=== PATIENT | male | born 1955 | race Two or more races ===

== ENCOUNTER 2025-02-04 02:18 | Emergency (ER) | payer MEDICAID, OTHER ==
[~2025-02-04] VITALS: Ht 175.3 cm; Wt 103.5 kg
--- NOTE | 2025-02-04 03:28 | DVH ---
CHEST RADIOGRAPH Indication: SOB Technique: Frontal and lateral view of the chest was obtained Comparison: None FINDINGS: Lines and Tubes: None Lungs: Clear Pleura: No effusion. No pneumothorax. Cardiomediastinal contours: Unremarkable Bones: Unremarkable. 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 IMPRESSION: 1. No evidence of acute disease.
--- NOTE | 2025-02-04 03:38 | ED.PDOC ---
SOB-HPI HPI Comments 70-year-old male came to ER for shortness of breath. Patient is Taiwanese-s peaking. Does have history of hypertension, sleep apnea, status post pacemaker insertion 2 arrhythmia. Patient states for the past 4 hours prior to arrival, he has been experiencing shortness of breath, associated with nausea and vomiting. Patient also experiencing chest pressure whenever he lays down. Patient is saturating 94% on room air upon arrival Chief Complaint: Shortness of Breath Time Seen by MD: 03:36 Reviewed notes: Nurses Notes Information Source: Patient Mode of Arrival: Ambulatory Severity: Moderate Timing: Hours Duration: Since onset Context: At Rest History of: None Prehospital treatment: None Review of Systems REVIEW OF SYSTEMS: No fever, no chills, or fatigue HEENT: No sore throat, no earache, no congestion, no neck pain. Cardiac: No chest pain. No palpitations. Lungs: (+) shortness of breath, no cough. GI: (+) nausea, (+) vomiting, no diarrhea, no constipation, no abdominal pain : No dysuria, frequency, or urgency. No hematuria. Musculoskeletal: No joint pain , no joint swelling, no extremity edema. Skin: No rash, no itching. Neuro: No headache, no dizziness, no weakness Vital Signs Vital Signs Date Time Temp Pulse Resp B/P (MAP) Pulse Ox O2 Delivery O2 Flow Rate FiO2 02/04/25 05:55 98.0 60 16 144/74 (97) 96 98.0 Physical Exam General: Awake, alert and oriented. No acute distress. Skin: Skin in warm, dry and intact. Appropriate color for ethnicity. Nailbeds pink with no cyanosis. HEENT: The head is normocephalic and atraumatic. Conjunctivae are clear without exudates or hemorrhage. Sclera is non-icteric. EOM are intact. No signs of nystagmus. Eyelids are normal in appearance without swelling or lesions. Oral mucosa is pink and moist Neck: The neck is supple with normal range of motion. No JVD. Cardiac: Heart rate and rhythm are normal. No murmurs, gallops, or rubs are auscultated. Respiratory: No signs of respiratory distress. Lung sounds are clear in all lobes bilaterally without rales, rhonchi, or wheezes. Abdominal: Abdomen is soft, non-tender without distention. Bowel sounds are present and normoactive in all four quadrants. Extremities: Upper and lower extremities are atraumatic in appearance without deformity or edema. Neurological: The patient is awake, alert and oriented to person, place, and time with normal speech. Speech is clear. There is no facial asymmetry. Psychiatric: Appropriate mood and affect. Good judgement and insight. No visual or auditory hallucinations. Past Medical History PAST MEDICAL HISTORY: HTN Past Medical History (Other): Sleep apnea Surgical History: Cholecystectomy, Pacemaker Family History Family History: Reviewed,noncontributory to illness Social History Smoker: Non-Smoker Alcohol: Denies ETOH Use Drugs: Denies Drug Use Lives In: Home EKG EKG : Comments No STEMI Was a procedure done? Was a procedure done?: No Differential Dx Differential Diagnosis: Asthma, Bronchitis, CHF, COPD, Hypertension, Hyperventilation, Myocardial infarction, Pneumonia, Pulmonary Embolism, Respiratory Distress, URI, Other (Sleep apnea) X-Ray, Labs, Meds, VS Vital Signs Date Time Temp Pulse Resp B/P (MAP) Pulse Ox O2 Delivery O2 Flow Rate FiO2 02/04/25 05:55 98.0 60 16 144/74 (97) 96 98.0 02/04/25 02:29 97.8 61 16 153/81 (105) 94 97.8 Lab Test 02/04/25 04:25 02/04/25 03:26 Range/Units Troponin I High Sensitivity 17 18 </=54 ng/L White Blood Count 6.8 4.4-10.8 10^3/uL Red Blood Count 4.93 4.5-5.90 10^6/uL Hemoglobin 16.7 13.5-17.5 g/dL Hematocrit 48.6 41.0-53.0 % Mean Corpuscular Volume 98.6 80.0-100.0 fL Mean Corpuscular Hemoglobin 34.0 H 28.0-32.0 pg Mean Corpuscular Hemoglobin Concent 34.4 32.0-36.0 g/dL Red Cell Distribution Width 14.6 H 11.8-14.3 % Platelet Count 135 L 140-450 10^3/uL Mean Platelet Volume 8.4 6.9-10.8 fL Neutrophils (%) (Auto) 37.0-80.0 % Lymphocytes (%) (Auto) 10.0-50.0 % Monocytes (%) (Auto) 0.0-12.0 % Basophils (%) (Auto) 0.0-2.0 % Neutrophils # (Auto) 1.6-8.6 10 ^3/uL Lymphocytes # (Auto) 0.4-5.4 10 ^3/uL Monocytes # (Auto) 0-1.3 10 ^3/uL Differential Total Cells Counted 100.0 100 Neutrophils % (Manual) 68 37.0-80.0 Band Neutrophils % (Manual) 3 Lymphocytes % (Manual) 28 10.0-50.0 Monocytes % (Manual) 1 0-12 Eosinophils % (Manual) 0 0-7 Basophils % (Manual) 0 0.0-2.0 Metamyelocytes % (manual) 0 Myelocytes % (Manual) 0 Promyelocytes % (Manual) 0 Blast Cells % (Manual) 0 Reactive Lymphocytes 0 Platelet Estimate Decreased Red Blood Cell Morphology Normal D-Dimer, Quantitative 0.50 H 0.0-0.49 mg/L FEU Sodium Level 140 136-145 mmol/L Potassium Level 3.9 3.5-5.1 mmol/L Chloride Level 104 98-107 mmol/L Carbon Dioxide Level 28 20-31 mmol/L Anion Gap 8 5-15 Blood Urea Nitrogen 13 9-23 mg/dL Creatinine 1.24 0.700-1.30 mg/dL Glomerular Filtration Rate Calc 62 >90 mL/min BUN/Creatinine Ratio 10.5 10.0-20.0 Serum Glucose 99 74-106 mg/dL Lactic Acid Level 1.2 0.4-2.0 mmol/L Calcium Level 9.6 8.7-10.4 mg/dL Total Bilirubin 1.1 H 0.2-1.0 mg/dL Aspartate Amino Transferase (AST) 19 13-40 U/L Alanine Aminotransferase (ALT) 25 7-40 U/L Alkaline Phosphatase 63 46-116 U/L B-Type Natriuretic Peptide 235.69 0-100 pg/mL Total Protein 7.1 5.7-8.2 g/dL Albumin 4.3 3.2-4.8 g/dL Images Reviewed?: Images reviewed and evaluated by me (Independent interpretation of chest x-ray: No acute disease) Time of 1ST Reevaluation: 03:34 Reevaluation 1ST: Unchanged Patient Education/Counseling: Need For Follow Up Family Education/Counseling: Need For Follow Up Departure 1 Departure Time of Disposition: 05:58 Impression: Primary Impression: Shortness of breath Disposition: 01 HOME / SELF CARE / HOMELESS Condition: Stable Additional Instructions: INSTRUCCIONES DE DAGO DE Urgencias Instrucciones: Grace atentamente todas las instrucciones proporcionadas en herlinda paquete. Aunque le hayan dado el dago del Departamento de Emergencias, esto no significa que tenga un "certificado de buena emma". [] Hoy no se marcial realizado ningn diagnstico definitivo para geri sntomas. Es posible que ests en proceso de desarrollar kiara enfermedad grave. Es por eso que debe regresar al servicio de urgencias sin falta si presenta algn sntoma nuevo o que empeora (especialmente si geri sntomas incluyen dolor en el pecho, dificultad para respirar, dolor abdominal, fiebre, dolor de kendall, confusin, dificultad para marj o caminar). Tambin es muy importante que consulte a un mdico de atencin primaria dentro de los prximos 2 a 3 schultz para realizar un seguimiento. Si no puede conseguir kiara kathleen, regrese al servicio de urgencias para kiara nueva evaluacin. Dificultad para respirar: Instrucciones de cuidado Instrucciones de cuidado La dificultad para respirar tiene muchas causas. En ocasiones, afecciones joey la ansiedad pueden provocarla. Algunas personas experimentan kiara leve dificultad para respirar al hacer ejercicio. La dificultad para respirar tambin puede ser sntoma de un problema grave, joey asma, enfermedad pulmonar, enfisema, problemas cardacos y neumona. Si la dificultad para respirar persiste, podra necesitar pruebas y tratamiento. Est atento a cualquier cambio en morrissey respiracin y otros sntomas. El seguimiento es fundamental para morrissey tratamiento y seguridad. Asegrese de programar y acudir a todas geri citas, y llame a morrissey mdico si tiene algn problema. Tambin es recomendable estar al tanto de los resultados de geri pruebas y llevar kiara lista de los medicamentos que ofelia. [employer] puedes cuidarte en casa? No fume ni permita que otros fumen cerca de usted. Si necesita ayuda para dejar de fumar, consulte con morrissey mdico sobre programas y medicamentos para dejar de fumar. Estos pueden aumentar geri probabilidades de dejarlo definitivamente. Descanse y duerma lo suficiente. [place] geri medicamentos exactamente joey se los recetaron. Llame a morrissey mdico si jennifer que tiene algn problema con geri medicamentos. Encuentre formas saludables de lidiar con el estrs. Francisca ejercicio diariamente [place] lo suficiente. Come regularmente y marie. Cundo debes pedir ayuda? Llame al 911 en cualquier momento que considere que necesita atencin de emergencia. Por ejemplo, llame si: Tiene dificultad para respirar grave. Tiene sntomas de un ataque cardaco. Estos pueden incluir: Dolor o presin en el pecho, o kiara sensacin extraa en el pecho. Transpiracin. Dificultad para respirar. Nuseas o vmitos. Dolor, presin o kiara sensacin extraa en la espalda, el farnaz, la mandbula o la parte superior del abdomen o en mariah o ambos hombros o brazos. Mareo o debilidad repentina. Un ritmo cardaco rpido o irregular. Despus de llamar al 911 , el operador podra indicarle que mastique kiara aspirina para adultos o de 2 a 4 aspirinas de dosis baja. Espere la ambulancia. No intente conducir. Llame a morrissey mdico ahora o busque atencin mdica inmediata si: La dificultad para respirar empeora o empieza a tener sibilancias. Las sibilancias son sonidos agudos al respirar. Te despiertas por la noche sin aliento o tienes que apoyar la kendall sobre varias almohadas para respirar. Tiene dificultad para respirar despus de realizar kiara actividad ligera o mientras est en reposo. Preste atencin a los cambios en morrissey emma y asegrese de comunicarse con morrissey mdico si: No mejora en los siguientes 1 a 2 schultz. Crditos para la dificultad para respirar: Instrucciones de cuidado Actualizado al: 2023 Autor: Personal de [employer] Junta de revisin clnica Toda la educacin de [employer] es revisada por un equipo que incluye mdicos, enfermeras, profesionales avanzados, dietistas registrados y otros profesionales de la emma. Comments 70 M with SOB. EKG negative for signs of ischemia. High sensitivity troponin negative. CXR shows no acute process. Presentation not suggestive of acute coronary syndrome, pulmonary embolism or aortic dissection. Patient reports feeling improved at time of discharge. No hypoxia, respiratory distress or dyspnea at discharge. Patient able to ambulate without difficulty. Patient reporting significant improvement with his shortness of breath. Discussed with the patient and his option for admission for further evaluation. Patient would like to go home and follow up with his primary care provider. Patient well-appearing, nontoxic. Advised prompt follow-up with PCP, return to the ED with any new, worsening or concerning symptoms. Extensive evaluation was performed in attempt to identify or rule out: (See differential diagnosis section) The following tests were ordered, and results were reviewed by me and discussed with patient: (See diagnostic results section) The following test were independently interpreted by me: EKG, chest x-ray I reviewed and agreed with the following test results read by other providers: Chest x-ray I reviewed the following notes from the pt's past medical encounters: N/A Additional information was gathered from interviewing the following independent historians: Patient's at bedside Discussion of management or test interpretation with external physician/other qualified health senior care specialist: N/A Decision regarding hospitalization or escalation of hospital level of care: Risks and benefits of admission for further treatment of patient's condition was considered however due to patient's stable condition patient will be discharged to follow up closely or return to care for worsening of condition or inability to follow up. Critical Care Note Critical Care Time?: No Stability Stability form required: No Heart Score Heart Score: Heart Score Response (Comments) Value History Slightly Suspicious 0 EKG Normal 0 Age >65 2 Risk Factors >3 or Hx ASHD 2 Troponin Normal limit 0 Total 4 I personally scribed for LAURA BURTON MD ([email or web address]) on 02/04/25 at 03:38. Electronically submitted by Fer Maradiaga ([email or web address]). LAURA BURTON MD Feb 04, 2025 03:38
[2025-02-04 03:52] LABS: Hematocrit 48.6 % (41.0-53.0); Hemoglobin 16.7 g/dL (13.5-17.5); Mean Corpuscular Hgb Conc. 34.4 g/dL (32.0-36.0); Mean Corpuscular Volume 98.6 fL (80.0-100.0); Platelet Count (auto) 135 10^3/uL (140-450); Red Blood Cells 4.93 10^6/uL (4.5-5.90); Red Cell Distribution Width 14.6 % (11.8-14.3); White Blood Cell 6.8 10^3/uL (4.4-10.8)
[2025-02-04 04:17] LABS: Alanine Aminotransferase 25 U/L (7-40); Albumin 4.3 g/dL (3.2-4.8); Alkaline Phosphatase 63 U/L (46-116); Anion Gap 8 (5-15); Aspartate Aminotransferase 19 U/L (13-40); BUN/Creatinine Ratio 10.5 (10.0-20.0); Blood Urea Nitrogen 13 mg/dL (9-23); Calcium 9.6 mg/dL (8.7-10.4); Carbon Dioxide 28 mmol/L (20-31); Chloride 104 mmol/L (98-107); Glucose 99 mg/dL (74-106); Potassium 3.9 mmol/L (3.5-5.1); Sodium 140 mmol/L (136-145); Total Protein 7.1 g/dL (5.7-8.2)
[2025-02-04 04:18] LABS: Bilirubin, Total 1.1 mg/dL (0.2-1.0)
[2025-02-04 04:49] LABS: Basophils % (manual) 0 (0.0-2.0); Blast Cells 0; Eosinophils % (manual) 0 (0-7); Metamyelocytes % 0; Myelocytes % 0; Promyelocytes % 0; Reactive Lymphocytes 0
[2025-02-04 05:55] VITALS: BP 144/74; PULSE 60; RESP 16; TEMP 98; O2SAT 96
[2025-02-04 06:58] LABS: Band Neutrophils % (manual) 3; Lymphocytes % (manual) 28 (10.0-50.0); Monocytes % (manual) 1 (0-12)
[2025-02-04 06:59] LABS: Platelet Estimate Decreased; RBC Morphology Normal
--- NOTE | 2025-02-06 09:48 | ECG ---
[facility] Test Date: 2025-02-04 Test Time: 02:49:26 Pat Name: EDIN MARKSDepartment: TRIAGE Room: Gender: M Director Clinical Data: : 1955 Requested By: SOREN HUNT Order Number: [id number] Reading MD: Javed Noland Measurements Intervals [place] Rate: 59 P: 26 LA: 173 QRS: 14 QRSD: 98 T: 62 QT: 449 QTc: 445 Interpretive Statements Sinus rhythm Abnormal R-wave progression, early transition Electronically Signed On 02-07-2025 20:54:40 PDT by Javed Noland Please click the below link to view image of tracing.
== END 2025-02-04 07:03 | disposition home or self-care (01) ==
LOC: ER 02:18
DX: R06.02 Shortness of breath (principal); I10 Essential (primary) hypertension; G47.30 Sleep apnea, unspecified; Z95.0 Presence of cardiac pacemaker; Z90.49 Acquired absence of other specified parts of digestive tract
CPT/HCPCS: 36415; 71046; 80053; 83605; 83880; 84484; 85007; 85027; 85379; 93005